=== PATIENT | female | born 1995 | race Caucasian/White ===

== ENCOUNTER 2017-08-28 21:13 | Emergency (ER) | payer OTHER ==
[~2017-08-28] VITALS: Ht 149.9 cm; Wt 48.6 kg
[2017-08-28 23:08] VITALS: BP 99/68
[2017-08-29 09:55] LABS: TREPONEMA ANTIBODY POSITIVE (NEGATIVE)
[2017-08-31 16:54] LABS: RPR SCREEN Reactive (Nonreactive); RPR TITER Reactive 1:16 (()); TREPONEMA PALLIDUM PART AGGL Reactive (Nonreactive)
== END 2017-08-28 23:08 | disposition home or self-care (01) ==
LOC: EME 21:13
PROVIDERS: Physician Assistant
DX: Z20.2 Contact with and (suspected) exposure to infections with a predominantly sexual mode of transmission (principal); F17.200 Nicotine dependence, unspecified, uncomplicated
CPT/HCPCS: 86592 90; 86780; 86780 90; 99281; 99284; J0561

== ENCOUNTER 2017-11-14 17:02 | Emergency (ER) | payer OTHER ==
[~2017-11-14] VITALS: Ht 149.9 cm; Wt 50.8 kg
[2017-11-14 17:35] LABS: BASOPHIL (%) 0.1 % (0-1); EOSINOPHIL COUNT 0.1 K/uL (0-0.3); HEMATOCRIT 38.8 % (36.0-46.0); HEMOGLOBIN 13.4 G/DL (11.9-15.5); IMMATURE GRANULOCYTE (%) 0.1 % (0.0-0.7); LYMPHOCYTE (%) 32.7 % (15-42); LYMPHOCYTE COUNT 2.2 K/uL (1.0-2.8); MCH 30.2 PG (29.0-34.0); MCHC 34.5 G/DL (30.0-36.0); MCV 87.4 FL (83-99); MONOCYTE (%) 7.7 % (3-12); MONOCYTE COUNT 0.5 K/uL (0-0.8); NEUTROPHIL (%) 58.4 % (45-76); NEUTROPHIL COUNT 3.9 K/uL (1.8-6.4); PLATELET COUNT 196 K/uL (156-360); RBC DIS.WIDTH-CV 13.6 % (11.8-14.6); RBC DIS.WIDTH-SD 43.1 % (39-53); RED BLOOD COUNT 4.44 M/uL (3.80-5.20); WHITE BLOOD COUNT 6.8 K/uL (4.1-10.2)
[2017-11-14 17:47] LABS: CHLORIDE 105 mEq/L (99-109); SODIUM 140 mEq/L (136-147)
[2017-11-14 17:48] LABS: GLUCOSE 93 mg/dL (70-99)
[2017-11-14 17:52] LABS: GFR ESTIMATE (CALCULATED) > 59 mL/min/; SERUM ETHYL ALCOHOL < 10 mg/dL
[2017-11-14 17:53] LABS: UREA NITROGEN (BUN) 10 mg/dL (9-23)
[2017-11-14 18:01] LABS: QUANTITATIVE HCG < 4.0 MIU/ML
[2017-11-14 18:01] LABS: AMPHETAMINE NEGATIVE (500 ng/mL); BARBITURATES NEGATIVE (200 ng/mL); BENZODIAZEPINES NEGATIVE (150 ng/mL); BUPRENORPHINE NEGATIVE (10 ng/mL); COCAINE NEGATIVE (150 ng/mL); METHADONE NEGATIVE (200 ng/mL); METHAMPHETAMINE NEGATIVE (500 ng/mL); OPIATES (MORPHINE) PRESUMPTIVE POSITIVE (100 ng/mL); OXYCODONE NEGATIVE (100 ng/mL); PHENCYCLIDINE NEGATIVE (25 ng/mL); PROPOXYPHENE NEGATIVE (300 ng/mL); THC CANNABINOIDS PRESUMPTIVE POSITIVE (50 ng/mL); TRICYCLIC ANTIDEPRESSANTS NEGATIVE (300 ng/mL)
[2017-11-14] MEDS ORDERED: TRAZODONE HCL50 MG PO (19:10)
[2017-11-14] MEDS ORDERED: ZOFRAN ODT4 MG PO (19:10)
[2017-11-14 20:29] VITALS: BP 110/66
== END 2017-11-14 20:30 | disposition home or self-care (01) ==
LOC: EME 17:02
PROVIDERS: Emergency Medicine
DX: F11.23 Opioid dependence with withdrawal (principal); F32.9 Major depressive disorder, single episode, unspecified; F12.10 Cannabis abuse, uncomplicated; F17.200 Nicotine dependence, unspecified, uncomplicated
CPT/HCPCS: 80048; 84702; 84999; 85025; 90839; 99281; 99285; G0480

== ENCOUNTER 2017-12-11 16:32 | Emergency (ER) | payer OTHER ==
[~2017-12-11] VITALS: Ht 152.4 cm; Wt 51.3 kg
[~2017-12-11 16:32] MED LIST: TRAZODONE HCL50 MG PO; ZOFRAN ODT4 MG PO
[2017-12-11 18:03] VITALS: BP 132/83
== END 2017-12-11 18:04 | disposition home or self-care (01) ==
LOC: EME 16:32
DX: S71.101A Unspecified open wound, right thigh, initial encounter (principal); W34.00XA Accidental discharge from unspecified firearms or gun, initial encounter; Z48.00 Encounter for change or removal of nonsurgical wound dressing; F17.200 Nicotine dependence, unspecified, uncomplicated
CPT/HCPCS: 99281; 99284